=== PATIENT | female | born 2000 | race African-American/Black ===

== ENCOUNTER 2021-11-30 20:33 | Emergency (ER) | payer SELFPAY ==
[2021-11-30 21:33] LABS: Bilirubin Neg (Negative); Blood, Urine 10 (Negative); Clarity Clear (Clear); Glucose, Urine (Dipstick) Normal (Negative); Ketone, Urine 15 mg/dL (Negative); Leukocyte Negative (Negative); Nitrite Negative (Negative); Protein, Urine (Dipstick) Negative (Neg-Trace); Specific Gravity, Urine 1.025 (1.002-1.036); Urobilinogen Normal mg/dL (Less than 2)
[2021-11-30 21:35] LABS: Pregnancy Test - Urine (BHCG) Negative (Negative); Pregu Control Background? CLEAR/WHITE (CLR/WHITE); Pregu Control Bar Appear? YES (CONTROL BAR); Specific Gravity 1.025 (1.002-1.036)
[2021-11-30 21:49] LABS: Bacteria/HPF 1+ HPF (None Seen)
[2021-12-01 13:59] LABS: Chlamydia by PCR DETECTED (NotDetected); GC by PCR Not Detected (NotDetected)
== END 2021-11-30 22:13 | disposition home or self-care (01) ==
LOC: CSHERS 20:33
DX: A60.04 Herpesviral vulvovaginitis (principal)
CPT/HCPCS: 81003; 81015; 81025; 87252; 87480; 87491; 87510; 87591; 87660; 99283

== ENCOUNTER 2023-07-18 08:50 | Day surgery (SDC) | payer OTHER ==
[2023-07-18 09:13] VITALS: BMI 21.1
[2023-07-18] MEDS ORDERED: hydrALAZINE 20 MG/ML VIAL SLOW IVP PRN (09:55)
== END 2023-07-18 10:09 | disposition home or self-care (01) ==
LOC: CSHLD/OP 08:50
PROVIDERS: ATTEND Obstetrics & Gynecology
DX: O36.8120 Decreased fetal movements, second trimester, not applicable or unspecified (principal); O00.01 Abdominal pregnancy with intrauterine pregnancy; O99.891 Other specified diseases and conditions complicating pregnancy; N89.8 Other specified noninflammatory disorders of vagina; Z79.82 Long term (current) use of aspirin; Z79.899 Other long term (current) drug therapy; Z3A.21 21 weeks gestation of pregnancy
CPT/HCPCS: 87480; 87510; 87660